=== PATIENT | female | born 1970 | race Caucasian/White ===

== ENCOUNTER 2023-03-07 07:20 | Inpatient (IN) | payer OTHER ==
[2023-03-07 07:41] VITALS: BMI 29.2
[2023-03-07] MEDS ORDERED: ACETAMINOPHEN 325 MG TABLET (FP) PO ONE (08:36)
[2023-03-07] MEDS ORDERED: ONDANSETRON 4 MG TABLET PO ONE (08:37)
[2023-03-07] MEDS ORDERED: ONDANSETRON *ODT* 4 MG TABLET ONE (08:49)
[2023-03-07] MEDS ORDERED: ACETAMINOPHEN 325 MG TABLET (FP) ONE (08:49)
[2023-03-07 10:42] LABS: BASO % 0.4 % (0-2.0); EOS % 5.8 % (0-4.5); HEMATOCRIT 34.2 % (32.4-45.2); LYMPH % 27.2 % (8-40); MCH 26.1 pg (25.7-33.7); MCHC 32.3 g/dl (32.0-36.0); MEAN CELL VOLUME 80.7 fl (80-96); MEAN PLT VOLUME 8.2 fl (7.5-11.1); MONO % 13.6 % (3.8-10.2); PLATELET COUNT 316 10^3/uL (134-434); RBC 4.23 M/mm3 (3.60-5.2); RDW 17.4 % (11.6-15.6); WHITE BLOOD COUNT 5.4 K/mm3 (4.0-10.0)
[2023-03-07 11:10] LABS: CALCIUM 8.4 mg/dL (8.5-10.1)
[2023-03-07 11:11] LABS: ALBUMIN 3.3 g/dl (3.4-5.0); BLOOD UREA NITROGEN 10.1 mg/dL (7-18)
[2023-03-07 11:14] LABS: CREATININE 0.4 mg/dL (0.55-1.3)
[2023-03-07 11:15] LABS: BILIRUBIN,TOTAL 0.2 mg/dL (0.2-1); TOT PROT 7.4 g/dl (6.4-8.2)
[2023-03-07] MEDS ORDERED: ONDANSETRON 4 MG/2 ML VIAL IVPUSH PRN (12:36)
[2023-03-08] MEDS: LACTATED RINGERS SOLUTION 1,000 ML/1,000 ML INFUS.BAG IV SCH ×3 (07:59→13:51)
[2023-03-08 08:59] LABS: BASO % 0.7 % (0-2.0); EOS % 5.4 % (0-4.5); HEMATOCRIT 33.9 % (32.4-45.2); HEMOGLOBIN 11.5 GM/dL (10.7-15.3); LYMPH % 29.8 % (8-40); MCH 27.1 pg (25.7-33.7); MCHC 33.8 g/dl (32.0-36.0); MEAN CELL VOLUME 80.1 fl (80-96); MEAN PLT VOLUME 7.9 fl (7.5-11.1); MONO % 9.3 % (3.8-10.2); NEUT % 54.8 % (42.8-82.8); PLATELET COUNT 327 10^3/uL (134-434); RBC 4.23 M/mm3 (3.60-5.2); RDW 17.1 % (11.6-15.6)
[2023-03-08 09:12] LABS: POTASSIUM 4.2 mmol/L (3.5-5.1)
[2023-03-08 09:20] LABS: CALCIUM 8.6 mg/dL (8.5-10.1)
[2023-03-08 09:21] LABS: BLOOD UREA NITROGEN 12.4 mg/dL (7-18)
[2023-03-08 09:24] LABS: CREATININE 0.5 mg/dL (0.55-1.3)
[2023-03-08] MEDS ORDERED: BUPIVACAINE HCL/PF 0.5% (5MG/ML) 10 ML VIAL ONE (09:53)
[2023-03-08] MEDS ORDERED: ERTAPENEM SODIUM 1 GM in SODIUM CHLORIDE 50 ML IVPB SCH (10:00)
[2023-03-08] MEDS ORDERED: oxyCODONE HCL 5 MG TABLET PO PRN ×2 (11:37→16:37)
[2023-03-08] MEDS ORDERED: BUPIVACAINE HCL/PF 0.5% (5MG/ML) 10 ML VIAL IJ ONE ×2 (14:03)
[2023-03-08] MEDS ORDERED: ONDANSETRON 4 MG/2 ML VIAL IVPUSH PRN (16:37)
[2023-03-08] MEDS ORDERED: LACTATED RINGERS SOLUTION 1,000 ML/1,000 ML INFUS.BAG IV SCH (16:37)
[2023-03-08] MEDS ORDERED: ACETAMINOPHEN INJECTION 100 ML IVPB ONE (17:13)
[2023-03-08] MEDS ORDERED: HYDROmorphone HCl 2 MG/ML VIAL ONE (17:13)
[2023-03-08] MEDS: HYDROmorphone HCl 2 MG/ML VIAL IVPUSH PRN ×2 (17:17→17:45)
[2023-03-08] MEDS ORDERED: ACETAMINOPHEN 1000 MG/100 ML BAG IVPB ONE (17:18)
[2023-03-08 22:33] VITALS: RESP 20
[2023-03-09 10:05] LABS: BASO % 0.3 % (0-2.0); EOS % 0.1 % (0-4.5); HEMATOCRIT 34.5 % (32.4-45.2); HEMOGLOBIN 11.3 GM/dL (10.7-15.3); LYMPH % 20.7 % (8-40); MCH 26.9 pg (25.7-33.7); MCHC 32.6 g/dl (32.0-36.0); MEAN CELL VOLUME 82.6 fl (80-96); MEAN PLT VOLUME 8.7 fl (7.5-11.1); NEUT % 70.9 % (42.8-82.8); PLATELET COUNT 369 10^3/uL (134-434); RBC 4.18 M/mm3 (3.60-5.2); WHITE BLOOD COUNT 7.2 K/mm3 (4.0-10.0)
[2023-03-09 11:18] LABS: POTASSIUM 4.7 mmol/L (3.5-5.1)
[2023-03-09 11:20] LABS: ALBUMIN 3.3 g/dl (3.4-5.0); CALCIUM 8.8 mg/dL (8.5-10.1)
[2023-03-09 11:21] LABS: BLOOD UREA NITROGEN 5.9 mg/dL (7-18)
[2023-03-09 11:23] LABS: CREATININE 0.5 mg/dL (0.55-1.3)
[2023-03-09 11:25] LABS: BILIRUBIN,TOTAL 0.3 mg/dL (0.2-1); TOT PROT 7.2 g/dl (6.4-8.2)
[2023-03-09 14:29] VITALS: BP 111/55; PULSE 62; TEMP 97.6
== END 2023-03-09 02:20 | disposition home or self-care (01) | DRG 263 ==
LOC: JER 07:20 → JASUSAT 12:44 → SUATTDRO 12:44 → J8W 20:18 → JASUSAT 20:19 → J8W 03-08 18:46
PROC: 07BD4ZX Excision of Aortic Lymphatic, Percutaneous Endoscopic Approach, Diagnostic (ICD-10-PCS; 2023-03-08)
PROC: 0FT44ZZ Resection of Gallbladder, Percutaneous Endoscopic Approach (ICD-10-PCS; principal; 2023-03-08 13:00)
DX: K80.00 Calculus of gallbladder with acute cholecystitis without obstruction (principal); R11.2 Nausea with vomiting, unspecified; R10.11 Right upper quadrant pain; E66.9 Obesity, unspecified; Z68.30 Body mass index [BMI] 30.0-30.9, adult
CPT/HCPCS: 36415; 76705-TC; 80048; 80053; 83690; 85025; 88304-TC; 93005; 93010; 94760; 99285-25